=== PATIENT | male | born 1980 | race Hispanic/Latino ===

== ENCOUNTER 2019-01-08 12:32 | Emergency (ER) | payer BC, OTHER ==
--- OUTSIDE RECORDS SUMMARY | 2019-01-08 12:35 | XMS REPORT ---
:1980 Author Organization eClinicalWorks Care Team Providers Name Role Phone Alan Willoughby Provider Role Unavailable Allergies, Adverse Reactions, Alerts Substance Reaction Event Type N.K.D.A. Info Not Available Non Drug Allergy Problems Problem Type Condition Code Onset Dates Condition Status Assessment Heat stress syndrome, initial T67.8XXA Active encounter Problem BMI 40.0-44.9, adult Z68.41 Active Problem Gastro-esophageal reflux disease K21.9 Active without esophagitis Problem Anxiety F41.9 Active Problem Sleep apnea, obstructive G47.33 Active Problem Elevated LFTs R79.89 Active Problem Mixed hyperlipidemia E78.2 Active Problem Benign essential hypertension I10 Active Medications Medication Code Code Instructions Start End Status Dosage System Date Date Flonase Allergy [facility] 35090495522 50 MCG/ACT Active 1 spray in Relief Nasally Once a each day nostril Lisinopril [facility] 18887292916 40 MG Orally Active 1 tablet Once a day Simvastatin ND 63109694784 40 Orally Once a Active 1 tablet day in the evening HydrOXYzine HCl [facility] 36618927306 25 MG Orally Jan 30, Active 1 tablet every 8 hrs PRN 2017 as needed anxiety Amlodipine [facility] 80259449483 10 MG Orally Active 1 tablet Besylate Once a day Protonix ND 43124509410 40 MG Orally Jan 30, Active 1 tablet Once a day 2018 Results No Known Results Summary Purpose eClinicalWorks Submission
--- OUTSIDE RECORDS SUMMARY | 2019-01-08 12:35 | XMS REPORT ---
:1980 [facility] Team Providers Name Role Phone WilloughbyAlan Provider Role Unavailable Allergies, Adverse Reactions, Alerts Substance Reaction Event Type N.K.D.A. Info Not Available Non Drug Allergy Problems Problem Type Condition Code Onset Dates Condition Status Assessment Well adult on routine health check Z00.00 Active Problem Elevated LFTs R79.89 Active Problem Anxiety F41.9 Active Problem Gastro-esophageal reflux disease K21.9 Active without esophagitis Problem Anxiety disorder F41.9 Active Problem Benign essential hypertension I10 Active Problem Sleep apnea, obstructive G47.33 Active Problem BMI 40.0-44.9, adult Z68.41 Active Problem Mixed hyperlipidemia E78.2 Active Assessment Adult BMI 38.0-38.9 kg/sq m Z68.38 Active Assessment Sleep apnea, obstructive G47.33 Active Assessment Gastro-esophageal reflux disease K21.9 Active without esophagitis Assessment Need for Tdap vaccination Z23 Active Assessment Mixed hyperlipidemia E78.2 Active Assessment Elevated LFTs R79.89 Active Assessment Benign essential hypertension I10 Active Medications Medication Code Code Instructions Start End Status Dosage System Date Date Amlodipine [facility] 81484672757 10 Orally Once a Active 1 tablet Besylate day HydrOXYzine HCl ND 96950893124 25 MG Orally Jan 30, Active 1 tablet every 8 hrs PRN 2017 as needed anxiety Omeprazole ND 82232831249 40 MG Orally Active 1 capsule Once a day Amlodipine [facility] 12607322485 10 MG Orally Active 1 tablet Besylate Once a day Lisinopril ND 48190047895 40 MG Orally Active 1 tablet Once a day Lisinopril [facility] 60823005623 40 MG Orally Active 1 tablet Once a day Simvastatin ND 17558224809 40 MG Orally Active 1 tablet Once a day in the evening Flonase Allergy [facility] 58358870803 50 MCG/ACT Active 1 spray in Relief Nasally Once a each day nostril Results No Known Results Immunizations Vaccine Administration Date TDAP > 7 Years-Adacel August 28, 2018 Summary Purpose eClinicalWorks Submission
--- OUTSIDE RECORDS SUMMARY | 2019-01-08 12:35 | XMS REPORT ---
:1980 Author Organization eClinicalWorks Care Team Providers Name Role Phone Alan Willoughby Provider Role Unavailable Allergies, Adverse Reactions, Alerts Substance Reaction Event Type N.K.D.A. Info Not Available Non Drug Allergy Problems Problem Type Condition Code Onset Dates Condition Status Assessment Gastro-esophageal reflux disease K21.9 Active without esophagitis Assessment Benign essential hypertension I10 Active Assessment History of recent change in Z78.9 Active lifestyle Assessment Anxiety F41.9 Active Problem BMI 40.0-44.9, adult Z68.41 Active Problem Gastro-esophageal reflux disease K21.9 Active without esophagitis Problem Anxiety F41.9 Active Problem Sleep apnea, obstructive G47.33 Active Problem Elevated LFTs R79.89 Active Problem Mixed hyperlipidemia E78.2 Active Problem Benign essential hypertension I10 Active Medications Medication Code Code Instructions Start End Status Dosage System Date Date Simvastatin ND 17352795851 40 Orally Once Active 1 tablet a day in the evening Amlodipine ND 47633433591 10 MG Orally Active 1 tablet Besylate Once a day Omeprazole ND 44029034302 40 MG Orally Inactive 1 capsule Once a day Lisinopril ND 09776980823 40 MG Orally Active 1 tablet Once a day Flonase Allergy [facility] 10867338873 50 MCG/ACT Active 1 spray in Relief Nasally Once a each day nostril Protonix ND 94891973490 40 MG Orally Jan 30, Active 1 tablet Once a day 2018 HydrOXYzine HCl ND 09776426539 25 MG Orally Jan 30, Active 1 tablet every 8 hrs PRN 2018 as needed anxiety Results No Known Results Summary Purpose eClinicalWorks Submission
--- OUTSIDE RECORDS SUMMARY | 2019-01-08 12:35 | XMS REPORT ---
:1980 Author Organization eClinicalWorks Care Team Providers Name Role Phone Case Alan Provider Role Unavailable Allergies, Adverse Reactions, Alerts Substance Reaction Event Type N.K.D.A. Info Not Available Non Drug Allergy Problems Problem Type Condition Code Onset Dates Condition Status Assessment Acute non-recurrent sinusitis, J01.90 Active unspecified location Problem Elevated LFTs R79.89 Active Assessment Cough R05 Active Problem Anxiety F41.9 Active Problem Gastro-esophageal reflux disease K21.9 Active without esophagitis Problem Anxiety disorder F41.9 Active Problem Benign essential hypertension I10 Active Problem Sleep apnea, obstructive G47.33 Active Problem BMI 40.0-44.9, adult Z68.41 Active Problem Mixed hyperlipidemia E78.2 Active Medications Medication Code Code Instructions Start End Status Dosage System Date Date Simvastatin ND 10152869023 40 Orally Once a Active 1 tablet day in the evening Flonase Allergy ND 70957389418 50 MCG/ACT Active 1 spray in Relief Nasally Once a each day nostril Zithromax ND 15558416909 250 MG Orally Jul 20, Jul 25, Active 2 tablets Once a day 2018 2018 on the first day, then 1 tablet daily for 4 days Amlodipine ND 31708768421 10 MG Orally Active 1 tablet Besylate Once a day Protonix ND 29863026764 40 MG Orally Jan 30, Active 1 tablet Once a day 2017 Simvastatin ND 48436280896 40 MG Orally Active 1 tablet Once a day in the evening Amlodipine ND 43998435841 10 Orally Once a Active 1 tablet Besylate day HydrOXYzine HCl ND 02344760013 25 MG Orally Jan 30, Active 1 tablet every 8 hrs PRN 2017 as needed anxiety Lisinopril ND 76052495076 40 MG Orally Active 1 tablet Once a day Omeprazole ND 07541378777 40 MG Orally Active 1 capsule Once a day Results No Known Results Summary Purpose eClinicalWorks Submission
--- OUTSIDE RECORDS SUMMARY | 2019-01-08 12:35 | XMS REPORT ---
:1980 Author Organization eClinicalWorks Care Team Providers Name Role Phone WilloughbyAlan Provider Role Unavailable Allergies, Adverse Reactions, Alerts Substance Reaction Event Type N.K.D.A. Info Not Available Non Drug Allergy Problems Problem Type Condition Code Onset Dates Condition Status Assessment Benign essential hypertension I10 Active Problem Elevated LFTs R79.89 Active Assessment Elevated LFTs R79.89 Active Assessment Sleep apnea, obstructive G47.33 Active Assessment Gastro-esophageal reflux disease K21.9 Active without esophagitis Assessment Mixed hyperlipidemia E78.2 Active Problem Anxiety F41.9 Active Problem Gastro-esophageal reflux disease K21.9 Active without esophagitis Problem Anxiety disorder F41.9 Active Problem Benign essential hypertension I10 Active Problem Sleep apnea, obstructive G47.33 Active Problem BMI 40.0-44.9, adult Z68.41 Active Problem Mixed hyperlipidemia E78.2 Active Medications Medication Code Code Instructions Start End Status Dosage System Date Date Flonase Allergy [facility] 82424153748 50 MCG/ACT Active 1 spray in Relief Nasally Once a each day nostril Lisinopril [facility] 49229940123 40 MG Orally Active 1 tablet Once a day Amlodipine ND 38660938619 10 MG Orally Active 1 tablet Besylate Once a day Protonix ND 13494452597 40 MG Orally Jan 30, Active 1 tablet Once a day 2017 Simvastatin ND 64368627414 40 Orally Once a Active 1 tablet day in the evening Omeprazole ND 73907362223 40 MG Orally Active 1 capsule Once a day Simvastatin ND 82564555492 40 MG Orally Active 1 tablet Once a day in the evening Amlodipine ND 06280431634 10 Orally Once a Active 1 tablet Besylate day HydrOXYzine HCl ND 09988122313 25 MG Orally Jan 30, Active 1 tablet every 8 hrs PRN 2018 as needed anxiety Results No Known Results Summary Purpose eClinicalWorks Submission
[2019-01-08 13:35] LABS: Absolute Lymphocytes (CBC) 2.2 K/uL (0.7-4.9); Basophils % 0.3 % (0-1.3); Lymphocytes % 28.8 % (15.3-44.8); MPV 9.3 fL (7.6-11.3); RBC Red Blood Cell Count 5.19 M/uL (4.33-5.43)
[2019-01-08 13:39] LABS: ALT/SGPT 30 U/L (12-78); AST/SGOT 17 U/L (15-37); Alkaline Phosphatase 86 U/L (45-117); BUN Blood Urea Nitrogen 14 mg/dL (7-18); Bicarbonate 25 mmol/L (21-32); Bilirubin Direct < 0.1 mg/dL (0-0.2); Bilirubin Total 0.3 mg/dL (0.2-1.0); Glucose Level 129 mg/dL (74-106); Magnesium 2.1 mg/dL (1.8-2.4); NT PRO-BNP 7 pg/mL (<125); Potassium 3.9 mmol/L (3.5-5.1); Protein, Total 8.1 g/dL (6.4-8.2); Sodium Level 135 mmol/L (136-145); Troponin (Emerg Dept Use Only) < 0.02 ng/mL (0.0-0.045)
--- NOTE | 2019-01-08 14:13 | RAD REPORT ---
EXAM DESCRIPTION: RAD - Chest Single View - 01/08/2019 1:18 pm CLINICAL HISTORY: Chest pain, chest heaviness COMPARISON: February 2017 TECHNIQUE: AP portable chest image was obtained 1317 hours . FINDINGS: No focal lung parenchymal process. Lung markings are similar to comparison. Heart and vasc ulature are normal. No measurable pleural effusion and no pneumothorax. No acute bony abnormality see n. No acute aortic findings suspected. IMPRESSION: No acute cardiopulmonary process. No significant interval change.
--- NOTE | 2019-01-08 14:39 | ER ---
Nurse's Notes [facility] Name: Kamaljit Yanez Age: 38 yrs Sex: Male : 1980 Arrival Date: 01/08/2019 Time: 12:37 Bed 27 Private MD: Alan Willoughby Diagnosis: Dizziness and giddiness;Near Syncope;Chest pain, unspecified Presentation: 01/08 12:38 Presenting complaint: Sudden chest heaviness, anxiety, and dizziness that lasted for hb approx 1 minute while seated having lunch. Now c/o chest heaviness 6/10 and nausea. Denies SOB. Vomit x 1. Transition of care: patient was not received from another setting of care. Onset of symptoms was January 08, 2019 at 11:40. Risk Assessment: Do you want to hurt yourself or someone else? Patient reports no desire to harm self or others. Initial Sepsis Screen: Does the patient meet any 2 criteria? No. Patient's initial sepsis screen is negative. Does the patient have a suspected source of infection? No. Patient's initial sepsis screen is negative. Care prior to arrival: None. 12:38 Method Of Arrival: Ambulatory hb 12:38 Acuity: KORY 3 hb Historical: - Allergies: 12:41 No Known Allergies; hb - Home Meds: 12:41 amlodipine 10 mg tab 1 tab once daily [Active]; Fish Oil 1,000 mg Oral cap daily hb [Active]; lisinopril 10 mg Oral tab 1 tab once daily [Active]; - PMHx: 12:41 High Cholesterol; Hypertension; hb - PSHx: 12:41 None; hb - Immunization history:: Adult Immunizations up to date. - Social history:: Smoking status: Patient/guardian denies using tobacco. - Ebola Screening: : No symptoms or risks identified at this time. Screenin:54 Abuse screen: Denies threats or abuse. Denies injuries from another. Nutritional mg2 screening: No deficits noted. Tuberculosis screening: No symptoms or risk factors identified. Fall Risk None identified. Assessment: 13:37 General: Appears in no apparent distress. comfortable, Behavior is calm, cooperative. mg2 Pain: Complains of pain in chest Pain does not radiate. Pain currently is 4 out of 10 on a pain scale. Quality of pain is described as aching, Pain began gradually, Is intermittent. Neuro: Level of Consciousness is awake, alert, obeys commands, Oriented to person, place, time, situation. Cardiovascular: Capillary refill < 3 seconds Patient's skin is warm and dry. Cardiovascular: Reports diaphoresis. Respiratory: Airway is patent Respiratory effort is even, unlabored, Respiratory pattern is regular, symmetrical. GI: No signs and/or symptoms were reported involving the gastrointestinal system. : No signs and/or symptoms were reported regarding the genitourinary system. EENT: No signs and/or symptoms were reported regarding the EENT system. Derm: Skin is intact, is healthy with good turgor, Skin is. Musculoskeletal: Circulation, motion, and sensation intact. Capillary refill < 3 seconds. Vital Signs: 12:40 BP 155 / 96; Pulse 108; Resp 16; Temp 98.5; Pulse Ox 99% on R/A; Weight 120.2 kg; hb Height 5 ft. 10 in. (177.80 cm); Pain 6/10; 13:47 BP 116 / 76; Pulse 99; Resp 17; Pulse Ox 100% on R/A; mg2 14:38 BP 127 / 82; Pulse 87; Resp 18; Pulse Ox 100% on R/A; mg2 12:40 Body Mass Index 38.02 (120.20 kg, 177.80 cm) hb NIH Stroke Scale Scores: 14:15 NIHSS Score: 0 [facility] ED Course: 12:37 Patient arrived in ED. mr 12:37 Alan Willoughby DO is Private Physician. mr 12:40 Triage completed. hb 12:40 Arm band placed on. hb 12:47 Dre Ruby PA is PHCP. jr8 12:47 Ashu Alexandra MD is Attending Physician. jr8 12:53 Albaro Neville RN is Primary Nurse. mg2 13:00 EKG done, by distribution technician. reviewed by Dre MCCARTY. at1 13:16 X-ray completed. Portable x-ray completed in exam room. Patient tolerated procedure ls3 well. 13:18 XRAY Chest (1 view) In Process Unspecified. EDMS 13:39 Patient has correct armband on for positive identification. monitoring and evaluation advisor on. Pulse mg2 ox on. NIBP on. 13:39 No provider procedures requiring assistance completed. Inserted saline lock: 20 gauge mg2 in right antecubital area, using aseptic technique. Blood collected. Patient maintains SpO2 saturation greater than 95% on room air. 14:38 Alan Willoughby DO is Referral Physician. jr8 15:01 IV discontinued, intact, bleeding controlled, No redness/swelling at site. Pressure mg2 dressing applied. Administered Medications: No medications were administered Outcome: 14:38 Discharge ordered by . 8 15:01 Discharged to home ambulatory, with family. mg2 15:01 Condition: improved 15:01 Discharge instructions given to patient, family, Instructed on discharge instructions, follow up and referral plans. Demonstrated understanding of instructions, follow-up care. 15:01 Patient left the ED. mg2 NIH Stroke Scale - NIH Stroke Score Date: 01/08/2019 Time: 14:15 Total Score = 0 1a. Level of Consciousness (LOC) - 0(Alert) 1b. Level of Consciousness (LOC) (Year \T\ Age) - 0(Both) 1c. LOC Commands (Open \T\ Closes Eyes/Water Regulator And Valve Repairer) - 0(Both) 2. Best Gaze (Lateral Gaze Paresis) - 0(Normal) 3. Visual Field Loss - 0(No visual loss) 4. Facial Palsy - 0(Normal) 5a. Left Arm: Motor (10-second hold) - 0(No drift) 5b. Right Arm: Motor (10-second hold) - 0(No drift) 6a. Left Leg: Motor (5-second hold - always test supine) - 0(No drift) 6b. Right Leg: Motor (5-second hold - always test supine) - 0(No drift) 7. Limb Ataxia (finger/nose \T\ heel/marie - test with eyes open) - 0(Absent) 8. Sensory Loss (pinprick arms/legs/face) - 0(Normal) 9. Best Language: Aphasia (description/naming/reading) - 0(No aphasia) 10. Dysarthria (speech clarity - read or repeat words) - 0(Normal) 11. Extinction and Inattention (visual/tactile/auditory/spatial/personal) - 0(No abnormality) Initials: jrMaster Signatures: Dispatcher [employer] EDPA Ayde Casanova, LUL Erickson jr8 Candis Page, communications engineering technician EKG Tat1 Janet Martines RN RN hb Albaro Neville RN RN mg2 Ab, Lynzie ls3
--- NOTE | 2019-01-08 14:40 | EDPHYS ---
Physician Documentation [facility] Name: Kamaljit Yanez Age: 38 yrs Sex: Male : 1980 Arrival Date: 01/08/2019 Time: 12:37 Bed 27 Private MD: Alan Willoughby ED Physician Ashu Alexandra HPI: 01/08 14:15 This 38 yrs old Male presents to ER via Ambulatory with complaints of Chest jr8 Pain, Dizziness. 14:15 Patient stated while at work started to become sweaty, dizzy, tingly, and light headed. jr8 Stated that his blood pressure was elevated at the time. Feeling better now but with fatigue . Onset: The symptoms/episode began/occurred acutely, today. Severity of symptoms: At their worst the symptoms were moderate in the emergency department the symptoms have improved mildly. The patient has not experienced similar symptoms in the past. The patient has not recently seen a physician. Historical: - Allergies: 12:41 No Known Allergies; hb - Home Meds: 12:41 amlodipine 10 mg tab 1 tab once daily [Active]; Fish Oil 1,000 mg Oral cap daily hb [Active]; lisinopril 10 mg Oral tab 1 tab once daily [Active]; - PMHx: 12:41 High Cholesterol; Hypertension; hb - PSHx: 12:41 None; hb - Immunization history:: Adult Immunizations up to date. - Social history:: Smoking status: Patient/guardian denies using tobacco. - Ebola Screening: : No symptoms or risks identified at this time. ROS: 14:15 Eyes: Negative for injury, pain, redness, and discharge, ENT: Negative for injury, jr8 pain, and discharge, Neck: Negative for injury, pain, and swelling, Respiratory: Negative for shortness of breath, cough, wheezing, and pleuritic chest pain, Abdomen/GI: Negative for abdominal pain, nausea, vomiting, diarrhea, and constipation, Back: Negative for injury and pain, MS/Extremity: Negative for injury and deformity, Skin: Negative for injury, rash, and discoloration. 14:15 Cardiovascular: Positive for chest pain, Negative for edema, orthopnea, palpitations, paroxysmal nocturnal dyspnea. 14:15 Neuro: Positive for dizziness, near syncope, tingling, Negative for altered mental status, gait disturbance, headache, hearing loss, loss of consciousness, numbness, seizure activity, speech changes, syncope, tinnitus, tremor, visual changes, weakness. Exam: 14:15 Constitutional: This is a well developed, well nourished patient who is awake, alert, jr8 and in no acute distress. Eyes: Pupils equal round and reactive to light, extra-ocular motions intact. Lids and lashes normal. Conjunctiva and sclera are non-icteric and not injected. Cornea within normal limits. Periorbital areas with no swelling, redness, or edema. ENT: Nares patent. No nasal discharge, no septal abnormalities noted. Tympanic membranes are normal and external auditory canals are clear. Oropharynx with no redness, swelling, or masses, exudates, or evidence of obstruction, uvula midline. Mucous membranes moist. Neck: Trachea midline, no thyromegaly or masses palpated, and no cervical lymphadenopathy. Supple, full range of motion without nuchal rigidity, or vertebral point tenderness. No Meningismus. Cardiovascular: Regular rate and rhythm with a normal S1 and S2. No gallops, murmurs, or rubs. Normal PMI, no JVD. No pulse deficits. Respiratory: Lungs have equal breath sounds bilaterally, clear to auscultation and percussion. No rales, rhonchi or wheezes noted. No increased work of breathing, no retractions or nasal flaring. Abdomen/GI: Soft, non-tender, with normal bowel sounds. No distension or tympany. No guarding or rebound. No evidence of tenderness throughout. Back: No spinal tenderness. No costovertebral tenderness. Full range of motion. Skin: Warm, dry with normal turgor. Normal color with no rashes, no lesions, and no evidence of cellulitis. MS/ Extremity: Pulses equal, no cyanosis. Neurovascular intact. Full, normal range of motion. Neuro: Awake and alert, GCS 15, oriented to person, place, time, and situation. Cranial nerves II-XII grossly intact. Motor strength 5/5 in all extremities. Sensory grossly intact. Cerebellar exam normal. Normal gait. Vital Signs: 12:40 BP 155 / 96; Pulse 108; Resp 16; Temp 98.5; Pulse Ox 99% on R/A; Weight 120.2 kg; hb Height 5 ft. 10 in. (177.80 cm); Pain 6/10; 13:47 BP 116 / 76; Pulse 99; Resp 17; Pulse Ox 100% on R/A; mg2 14:38 BP 127 / 82; Pulse 87; Resp 18; Pulse Ox 100% on R/A; mg2 12:40 Body Mass Index 38.02 (120.20 kg, 177.80 cm) hb NIH Stroke Scale Scores: 14:15 NIHSS Score: 0 jr8 MDM: 12:47 Patient medically screened. jr8 14:15 Data reviewed: vital signs, nurses notes, lab test result(s), EKG, radiologic studies, jr8 plain films. Data interpreted: Pulse oximetry: on room air is 100 %. Interpretation: normal. Counseling: I had a detailed discussion with the patient and/or guardian regarding: the historical points, exam findings, and any diagnostic results supporting the discharge/admit diagnosis, lab results, radiology results, the need for outpatient follow up, a family practitioner, to return to the emergency department if symptoms worsen or persist or if there are any questions or concerns that arise at home. 14:36 ED course: Patient improving. BP within normal range. No acute findings on exam, jr8 images, ecg, or labs. Will send home to f/u with PCP. To continue his BP meds. If worse or something to change to immediately come back . 01/08 13:00 Order name: Basic Metabolic Panel; Complete Time: 14:11 mg2 01/08 13:00 Order name: CBC with Diff; Complete Time: 14:11 mg2 01/08 13:00 Order name: LFT's; Complete Time: 14:11 mg2 01/08 13:00 Order name: Magnesium; Complete Time: 14:11 mg2 01/08 13:00 Order name: NT PRO-BNP; Complete Time: 14:11 mg2 01/08 13:00 Order name: PT-INR; Complete Time: 14:11 mg2 01/08 13:00 Order name: Troponin (emerg Dept Use Only); Complete Time: 14:11 mg2 01/08 13:00 Order name: XRAY Chest (1 view); Complete Time: 14:15 mg2 01/08 13:00 Order name: EKG; Complete Time: 13:01 mg2 01/08 13:00 Order name: Cardiac monitoring; Complete Time: 13:12 mg2 01/08 13:00 Order name: EKG - Nurse/Tech; Complete Time: 13:11 mg2 01/08 13:00 Order name: IV Saline Lock; Complete Time: 13:11 mg2 01/08 13:00 Order name: Labs collected and sent; Complete Time: 13:11 mg2 01/08 13:00 Order name: O2 Per Protocol; Complete Time: 13:11 mg2 01/08 13:00 Order name: O2 Sat Monitoring; Complete Time: 13:11 mg2 Administered Medications: No medications were administered Disposition: 01/09 07:47 Co-signature as Attending Physician, Ashu Alexandra MD I agree with the assessment and wa plan of care. Disposition: 01/08/19 14:38 Discharged to Home. Impression: Dizziness and giddiness, Near Syncope, Chest pain, unspecified. - Condition is Stable. - Discharge Instructions: Nonspecific Chest Pain, Dizziness, Near-Syncope, [id number]. - Medication Reconciliation Form, Thank You Letter, Antibiotic Education, Prescription Opioid Use form. - Follow up: Alan Willoughby, ; When: 2 - 3 days; Reason: Recheck today's complaints, Continuance of care, Re-evaluation by your physician. - Problem is new. - Symptoms have improved. NIH Stroke Scale - NIH Stroke Score Date: 01/08/2019 Time: 14:15 Total Score = 0 1a. Level of Consciousness (LOC) - 0(Alert) 1b. Level of Consciousness (LOC) (Year \T\ Age) - 0(Both) 1c. LOC Commands (Open \T\ Closes Eyes/Jewel Bearing Broacher) - 0(Both) 2. Best Gaze (Lateral Gaze Paresis) - 0(Normal) 3. Visual Field Loss - 0(No visual loss) 4. Facial Palsy - 0(Normal) 5a. Left Arm: Motor (10-second hold) - 0(No drift) 5b. Right Arm: Motor (10-second hold) - 0(No drift) 6a. Left Leg: Motor (5-second hold - always test supine) - 0(No drift) 6b. Right Leg: Motor (5-second hold - always test supine) - 0(No drift) 7. Limb Ataxia (finger/nose \T\ heel/marie - test with eyes open) - 0(Absent) 8. Sensory Loss (pinprick arms/legs/face) - 0(Normal) 9. Best Language: Aphasia (description/naming/reading) - 0(No aphasia) 10. Dysarthria (speech clarity - read or repeat words) - 0(Normal) 11. Extinction and Inattention (visual/tactile/auditory/spatial/personal) - 0(No abnormality) Initials: hussein Signatures: Dispatcher [employer] EDMS Dre Ruby PA PA jr8 Janet Martines RN RN Ashu Alexandra MD MD wa Gardose, Michele, RN RN mg2 Corrections: (The following items were deleted from the chart) 01/08 15:01 14:38 01/08/2019 14:38 Discharged to Home. Impression: Dizziness and giddiness; mg2 Near Syncope; Chest pain, unspecified. Condition is Stable. Forms are Medication Reconciliation Form, Thank You Letter, Antibiotic Education, Prescription Opioid Use. Follow up: Alan Willoughby; When: 2 - 3 days; Reason: Recheck today's complaints, Continuance of care, Re-evaluation by your physician. Problem is new. Symptoms have improved. jr8
[2019-01-08 15:36] VITALS: TEMP 98.5
[2019-01-08 15:38] VITALS: O2SAT 100
[2019-01-08 15:39] VITALS: BP 127/82
--- NOTE | 2019-01-09 07:38 | EKG ---
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
== END 2019-01-08 15:01 | disposition home or self-care (01) ==
LOC: ER 12:32
DX: R07.9 Chest pain, unspecified (principal); R55 Syncope and collapse; I10 Essential (primary) hypertension; E78.00 Pure hypercholesterolemia, unspecified
CPT/HCPCS: 36415; 71045; 80048; 80076; 83735; 83880; 84484; 85025; 85610; 93005; 99285